=== PATIENT | female | born 1990 | race Caucasian/White ===

== ENCOUNTER 2018-08-14 17:20 | Emergency (ER) | payer BC, OTHER ==
[2018-08-14] MEDS ORDERED: NORG1TAB17 PO (17:39)
--- NOTE | 2018-08-14 17:46 | ER Report ---
History and Physical Time Seen By MD: 17:45 Hx. of Stated Complaint: ABD PAIN SINCE SATURDAY, THINKS HER GALLBLADDER IS INFECTED HPI/ROS CHIEF COMPLAINT: Abdominal pain HISTORY OF PRESENT ILLNESS: This is a 28-year-old female with extensive emergency department for abdominal pain. Patient states that January of last ye ar, she had some right upper abdominal pain, she was evaluated in [place] which is where she lives, noted to have gallbladder disease with stones, patient states that they sent her home was some pain medication and some stool softeners no follow-up with surgery. Patient has had a few small attacks since however this past Saturday she was eating at [employer] and almost immediately after eating she began to have right upper quadrant pain, the pain is continued since, increasing in intensity, she did drive down from [place] today as she does have family in [place], [facility] subsequently she was sent to the ER for evaluation. She is not febrile. She denies chills, no nausea or vomiting. She was constipated however that has since then resolved. No rashes. No dysuria. REVIEW OF SYSTEMS: Constitutional: No fever, no chills. Eyes: No discharge. ENT: No sore throat. Cardiovascular: No chest pain, no palpitations. Respiratory: No cough, no shortness of breath. Gastrointestinal: As above. Genitourinary: No hematuria. Musculoskeletal: No back pain. Skin: No rashes. Neurological: No headache. Allergies: Coded Allergies: No Known Drug Allergies (Unverified , 08/14/18) Home Meds Active Scripts Tramadol Hcl (ULTRAM) 50 Mg Tablet, 50-100 MG PO Q4-6H, #10 TAB 0 Refills Prov:BULL HARDING OPERATOR/ASSISTANT FOREMAN-BC 08/14/18 Amoxicillin/Pot Clav 875-125 Mg Tab (AUGMENTIN 875-125 TABLET) 1 Each Tablet, 1 TAB PO Q12H for 5 Days, #10 TAB 0 Refills Prov:BULL HARDING OPERATOR/ASSISTANT FOREMAN-BC 08/14/18 Reported Medications Norgestimate-Ethinyl Estradiol (TRI-LINYAH) 1 Each Tablet, 1 EACH PO DAILY 08/14/18 Past Medical/Surgical History Patient has a past medical and surgical history of GERD, gallbladder disease, ovarian cysts, . Reviewed Nurses Notes: Yes Hx Smoking: No Smoking Status: Never Smoker Exposure to Second Hand Smoke?: No Constitutional Vital Sign - Last 24 Hours 08/14/18 08/14/18 08/14/18 08/14/18 17:34 17:35 18:00 18:15 Temp 98.5 Pulse 77 70 78 Resp 14 B/P (MAP) 141/97 (112) 141/97 136/95 (109) Pulse Ox 97 96 97 O2 Delivery Room Air 08/14/18 08/14/18 08/14/18 08/14/18 18:30 18:35 18:50 19:00 Pulse 76 66 74 B/P (MAP) ???/??? (1665) Pulse Ox 97 98 94 08/14/18 08/14/18 08/14/18 08/14/18 19:05 19:20 19:30 19:35 Pulse 74 103 83 B/P (MAP) ???/??? (1665) Pulse Ox 95 82 96 08/14/18 08/14/18 08/14/18 08/14/18 19:50 20:05 20:08 20:20 Pulse 83 78 83 B/P (MAP) 129/87 (101) Pulse Ox 94 98 97 08/14/18 08/14/18 08/14/18 20:25 20:40 20:55 Pulse 83 78 73 Pulse Ox 97 97 81 Intake and Output 08/14/18 08/14/18 08/15/18 15:00 23:00 07:00 Intake Total 1000 ml Balance 1000 ml Physical Exam General Appearance: The patient is alert, has no immediate need for airway protection and no signs of toxicity. Eyes: Pupils equal and round no pallor or injection. ENT, Mouth: Mucous membranes are moist. Respiratory: There are no retractions, lungs are clear to auscultation. Cardiovascular: Regular rate and rhythm. No murmurs, clicks or rubs. Gastrointestinal: Abdomen is soft , positive Campbell sign, right upper quadrant pain with light palpation, mild right lower quadrant pain with palpation, there is a palpable nodule to the right upper costal margin. Unremarkable left abdome n. no masses, bowel sounds normal. Neurological: Alert and oriented 4. Moving all extremities. Following all commands. No focal neuro deficits. Skin: Warm and dry, no rashes. Musculoskeletal: Neck is supple non tender. Extremities are nontender, nonswollen and have full range of motion. DIFFERENTIAL DIAGNOSIS: After history and physical exam differential diagnosis was considered for abdominal pain in a female including but not limited to ovarian cyst, gallbladder disease, pelvic inflammatory disease, ovarian torsion, urinary tract infection, and appendicitis. Medical Decision Making Data Points Result Diagram: 08/14/18 1811 08/14/18 1811 Laboratory Hematology Test 08/14/18 17:32 08/14/18 18:11 Urine Color Yellow Urine Clarity Clear Urine pH 6.0 pH (4.8-9.5) Urine Specific Gilbert 1.020 Urine Protein Negative mg/dL (NEGATIVE) Urine Glucose (UA) Negative mg/dL (NEGATIVE) Urine Ketones Negative mg/dL (NEGATIVE) Urine Blood Moderate (NEGATIVE) Urine Nitrite Negative (NEGATIVE) Urine Bilirubin Negative (NEGATIVE) Urine Urobilinogen Negative mg/dL (0.2-1.9) Urine Leukocyte Esterase Negative (NEGATIVE) Urine RBC 2 /HPF (0-2/HPF) Urine WBC <1 /HPF (0-5/HPF) Urine Squamous Epithelial Cells None /LPF (</=FEW) Urine Bacteria Negative /HPF (NONE-FEW) Urine Mucus None /HPF (NONE-FEW) Red Blood Count 4.79 M/uL (4.17-5.56) Mean Corpuscular Volume 85.1 fL (80.0-96.0) Mean Corpuscular Hemoglobin 28.6 pg (26.0-33.0) Mean Corpuscular Hemoglobin Concent 33.6 g/dL (32.0-36.0) Red Cell Distribution Width 14.6 % (11.5-14.5) Mean Platelet Volume 7.3 fL (7.2-11.1) Neutrophils (%) (Auto) 42.8 % (39.4-72.5) Lymphocytes (%) (Auto) 41.1 % (17.6-49.6) Monocytes (%) (Auto) 5.3 % (4.1-12.4) Eosinophils (%) (Auto) 10.0 % (0.4-6.7) Basophils (%) (Auto) 0.8 % (0.3-1.4) Nucleated RBC Relative Count (auto) 0.0 /100WBC Neutrophils # (Auto) 3.0 K/uL (2.0-7.4) Lymphocytes # (Auto) 2.8 K/uL (1.3-3.6) Monocytes # (Auto) 0.4 K/uL (0.3-1.0) Eosinophils # (Auto) 0.7 K/uL (0.0-0.5) Basophils # (Auto) 0.1 K/uL (0.0-0.1) Nucleated RBC Absolute Count (auto) 0.00 K/uL Sodium Level 147 mmol/L (137-145) Potassium Level 4.4 mmol/L (3.5-5.0) Chloride Level 106 mmol/L (98-107) Carbon Dioxide Level 26 mmol/L (22-31) Blood Urea Nitrogen 13 mg/dl (7-18) Creatinine 0.70 mg/dl (0.52-1.04) Glomerular Filtration Rate Calc > 60.0 Random Glucose 95 mg/dl (75-110) Calcium Level 9.5 mg/dl (8.4-10.2) Total Bilirubin 0.1 mg/dl (0.2-1.3) Aspartate Amino Transf (AST/SGOT) 17 U/L (0-35) Alanine Aminotransferase (ALT/SGPT) 19 U/L (0-56) Alkaline Phosphatase 81 U/L (0-126) Total Protein 7.6 g/dl (6.3-8.2) Albumin 4.3 g/dl (3.5-5.0) Lipase 84 U/L (23-300) Chemistry Test 08/14/18 17:32 08/14/18 18:11 Urine Color Yellow Urine Clarity Clear Urine pH 6.0 pH (4.8-9.5) Urine Specific Gilbert 1.020 Urine Protein Negative mg/dL (NEGATIVE) Urine Glucose (UA) Negative mg/dL (NEGATIVE) Urine Ketones Negative mg/dL (NEGATIVE) Urine Blood Moderate (NEGATIVE) Urine Nitrite Negative (NEGATIVE) Urine Bilirubin Negative (NEGATIVE) Urine Urobilinogen Negative mg/dL (0.2-1.9) Urine Leukocyte Esterase Negative (NEGATIVE) Urine RBC 2 /HPF (0-2/HPF) Urine WBC <1 /HPF (0-5/HPF) Urine Squamous Epithelial Cells None /LPF (</=FEW) Urine Bacteria Negative /HPF (NONE-FEW) Urine Mucus None /HPF (NONE-FEW) White Blood Count 6.9 k/uL (4.5-11.0) Red Blood Count 4.79 M/uL (4.17-5.56) Hemoglobin 13.7 g/dL (12.0-16.0) Hematocrit 40.8 % (34.0-47.0) Mean Corpuscular Volume 85.1 fL (80.0-96.0) Mean Corpuscular Hemoglobin 28.6 pg (26.0-33.0) Mean Corpuscular Hemoglobin Concent 33.6 g/dL (32.0-36.0) Red Cell Distribution Width 14.6 % (11.5-14.5) Platelet Count 281 K/uL (150-450) Mean Platelet Volume 7.3 fL (7.2-11.1) Neutrophils (%) (Auto) 42.8 % (39.4-72.5) Lymphocytes (%) (Auto) 41.1 % (17.6-49.6) Monocytes (%) (Auto) 5.3 % (4.1-12.4) Eosinophils (%) (Auto) 10.0 % (0.4-6.7) Basophils (%) (Auto) 0.8 % (0.3-1.4) Nucleated RBC Relative Count (auto) 0.0 /100WBC Neutrophils # (Auto) 3.0 K/uL (2.0-7.4) Lymphocytes # (Auto) 2.8 K/uL (1.3-3.6) Monocytes # (Auto) 0.4 K/uL (0.3-1.0) Eosinophils # (Auto) 0.7 K/uL (0.0-0.5) Basophils # (Auto) 0.1 K/uL (0.0-0.1) Nucleated RBC Absolute Count (auto) 0.00 K/uL Glomerular Filtration Rate Calc > 60.0 Calcium Level 9.5 mg/dl (8.4-10.2) Total Bilirubin 0.1 mg/dl (0.2-1.3) Aspartate Amino Transf (AST/SGOT) 17 U/L (0-35) Alanine Aminotransferase (ALT/SGPT) 19 U/L (0-56) Alkaline Phosphatase 81 U/L (0-126) Total Protein 7.6 g/dl (6.3-8.2) Albumin 4.3 g/dl (3.5-5.0) Lipase 84 U/L (23-300) Urinalysis Test 08/14/18 17:32 Urine Color Yellow Urine Clarity Clear Urine pH 6.0 pH (4.8-9.5) Urine Specific Gilbert 1.020 Urine Protein Negative mg/dL (NEGATIVE) Urine Glucose (UA) Negative mg/dL (NEGATIVE) Urine Ketones Negative mg/dL (NEGATIVE) Urine Blood Moderate (NEGATIVE) Urine Nitrite Negative (NEGATIVE) Urine Bilirubin Negative (NEGATIVE) Urine Urobilinogen Negative mg/dL (0.2-1.9) Urine Leukocyte Esterase Negative (NEGATIVE) Urine RBC 2 /HPF (0-2/HPF) Urine WBC <1 /HPF (0-5/HPF) Urine Squamous Epithelial Cells None /LPF (</=FEW) Urine Bacteria Negative /HPF (NONE-FEW) Urine Mucus None /HPF (NONE-FEW) EKG/Imaging Imaging PATIENT NAME: Yolette Espinoza : 1990 MR: [id number] V: [id number] EXAM DATE: [id number] ORDERING PHYSICIAN: BULL HARDING TECHNOLOGIST: Location: [facility] Patient: Yolette Espinoza : 1990 Visit/Account:[id number] Date of Sevice: 08/14/2018 EXAMINATION: Focused right upper quadrant ultrasound COMPARISON: None HISTORY: Right upper quadrant pain. Findings: Standard right upper quadrant abdominal ultrasound is performed. Pancreas: Visualized portions of the pancreas are unremarkable. Liver and portal vein: Negative. Gallbladder and biliary system: Mildly distended gallbladder containing a few small echogenic and slightly shadowing mobile stones. No wall thickening or p ericholecystic fluid is identified but a sonographic Campbell sign is present. Visualized common bile duct is within normal limits. Visualized aorta and IVC: Negative. Kidneys: The right kidney measures 11.3 x 4.4 x 5.8 cm . No renal mass, stone, or hydronephrosis. Ascites: None. IMPRESSION: Mildly distended gallbladder containing small stones. Although there is no definite evidence of gallbladder wall inflammation, a sonographic Campbell sign is present and acute cholecystitis remains a possibility. Consider surgical consultation versus further characterization by HIDA as clinically indicated. Report Dictated By: Cristhian Roy MD at 08/14/2018 7:12 PM Report E-Signed By: Cristhian Roy MD at 08/14/2018 7:15 PM WSN:[email or web address] ED Course/Re-evaluation Clinical Indication for ER IV: Hydration, IV Access ED Course The patient was admitted to room. A history and physical were obtained. Differential diagnoses were considered. IV was started. Patient was given a 1 L normal saline bolus. She declined pain medications at this time. A CBC, CMP were obtained. Laboratory studies unremarkable. Negative UA. An ultrasound of the right upper quadrant showing a Mildly distended gallbladder containing small stones. Although there is no definite evidence of gallbladder wall inflammation, a sonographic Campbell sign is present and acute cholecystitis remains a possibility. I did review this with the patient, I also told him I spoke with Dr. Alvarez, the general surgeon on-call he will evaluate the patient. Dr. Alvarez did evaluate the patient, patient will be sent home on Augmentin and tramadol for pain. She'll contact his office tomorrow for a scheduled follow-up appointment next week likely for an outpatient surgical removal of the gallbladder. The patient had no other questions or concerns at this time, was ag reeable with this plan of care and discharged home. 08/14/2018 8:05:42 pm I did speak with Dr. Alvarez, the general surgeon on-call regarding the patient's case he will come down to evaluate the patient and formulate a plan at this time. 08/14/2018 9:12:[address] Alvarez was able to evaluate the patient, patient will contact Dr. Alvarez's office for outpatient cholecystectomy, likely next week. Decision to Disposition Date: August 14, 2018 Decision to Disposition Time: 21:12 Depart Departure Latest Vital Signs Vital Signs Date Time Temp Pulse Resp B/P (MAP) Pulse Ox O2 Delivery O2 Flow Rate FiO2 08/14/18 20:55 73 81 08/14/18 20:08 129/87 (101) 08/14/18 17:35 98.5 14 Room Air Impression: Primary Impression: Gallstones without obstruction of gallbladder Additional Impression: Right upper quadrant pain Condition: Improved Disposition: HOME OR SELF-CARE Referrals: ANIL ALVAREZ 5 Days New Scripts Tramadol Hcl (ULTRAM) 50 Mg Tablet 50-100 MG PO Q4-6H, #10 TAB 0 Refills Prov: BULL HARDING OPERATOR/ASSISTANT FOREMAN-BC 08/14/18 Amoxicillin/Pot Clav 875-125 Mg Tab (AUGMENTIN 875-125 TABLET) 1 Each Tablet 1 TAB PO Q12H for 5 Days, #10 TAB 0 Refills Prov: BULL HARDING OPERATOR/ASSISTANT FOREMAN-BC 08/14/18 Patient Instructions: Cholecystitis (ED) Additional Instructions: Please take the antibiotics as prescribed. Take Ibuprofen or Tylenol for pain. Take Tramadol for severe pain. Avoid fatty foods. Call Dr. Alvarez's office tomorrow to schedule the outpatient follow up appointment for next week. Return to the ED for any other concerns or worsening symptoms. Problem Qualifiers Primary Impression: Gallstones without obstruction of gallbladder Cholelithiasis location: gallbladder Cholecystitis presence: without cholecystitis Qualified Codes: K80.20 - Calculus of gallbladder without cholecystitis without obstruction BULL HARDING OPERATOR/ASSISTANT FOREMAN-BC August 14, 2018 17:46
[2018-08-14] MEDS ORDERED: NS(*) 0.9% 1000 ML BAG 1,000 ML IV ONE (17:55)
[2018-08-14 18:30] LABS: PLATELET COUNT, AUTOMATED 281 K/uL (150-450)
--- NOTE | 2018-08-14 19:19 | RADIOLOGY IMAGING REPORT ---
FACILITY: [facility] PATIENT NAME: Yolette Espinoza : 1990 MR: [id number] V: [id number] EXAM DATE: ORDERING PHYSICIAN: BULL HARDING TECHNOLOGIST: Location: [facility] Patient: Yolette Espinoza : 1990 Visit/Account:[id number] Date of Sevice: 08/14/2018 EXAMINATION: Focused right upper quadrant ultrasound COMPARISON: None HISTORY: Right upper quadrant pain. Findings: Standard right upper quadrant abdominal ultrasound is performed. Pancreas: Visualized portions of the pancreas are unremarkable. Liver and portal vein: Negative. Gallbladder and biliary system: Mildly distended gallbladder containing a few small echogenic and sli ghtly shadowing mobile stones. No wall thickening or pericholecystic fluid is identified but a sonog raphic Campbell sign is present. Visualized common bile duct is within normal limits. Visualized aorta and IVC: Negative. Kidneys: The right kidney measures 11.3 x 4.4 x 5.8 cm . No renal mass, stone, or hydronephrosis. Ascites: None. IMPRESSION: Mildly distended gallbladder containing small stones. Although there is no definite evidence of gall bladder wall inflammation, a sonographic Campbell sign is present and acute cholecystitis remains a pos sibility. Consider surgical consultation versus further characterization by MANJULA as clinically indic ated. Report Dictated By: Cristhian Roy MD at 08/14/2018 7:12 PM Report E-Signed By: Cristhian Roy MD at 08/14/2018 7:15 PM WSN:[email or web address]
[2018-08-14 20:08] VITALS: BP 129/87
[2018-08-14] MEDS ORDERED: TRAM-627 PO (21:15)
[2018-08-14] MEDS ORDERED: AMOX-559 PO (21:15)
[2018-08-14] MEDS ORDERED: traMADol 50 MG TAB TH 2 TAB/BOTTLE PO ONE (21:20)
[2018-08-14] MEDS ORDERED: AMOX/CLAV 875 MG TAB PO ONE (21:20)
== END 2018-08-14 21:38 | disposition home or self-care (01) ==
LOC: ER 17:32
DX: K80.20 Calculus of gallbladder without cholecystitis without obstruction (principal)
CPT/HCPCS: 36415; 76705; 81001; 83690; 85025; 96360; 96361; 99283; C9399; J7030; 82040; 82247; 82310; 82374; 82435; 82565; 82947; 84075; 84132; 84155; 84295; 84450; 84460; 84520

== ENCOUNTER 2018-08-19 01:27 | Day surgery (SDC) | payer BC ==
--- NOTE | 2018-08-16 20:01 | General Surgery Consultation ---
History of Present Illness Reason for Consult abd pain Chief Complaint abd pain History of Present Illness pt seen by me in er on 08/14/18 28 yo f with ruq pain. the pain started in jan 2018. pt was evaluated in [place], [place] she was found to have gallstones. she did not have surgery at that time. she has had ruq pain periodically. she ate a greasy meal last weekend and severe ruq pain. the pain is now resolving. no vomiting. no diarrhea. pmh/psh: gerd, ovarian cysts social hx: no cigs History Home Meds Active Scripts Tramadol Hcl (ULTRAM) 50 Mg Tablet, 50-100 MG PO Q4-6H, #10 TAB 0 Refills Prov:BULL HARDING [facility]-BC 08/14/18 Amoxicillin/Pot Clav 875-125 Mg Tab (AUGMENTIN 875-125 TABLET) 1 Each Tablet, 1 TAB PO Q12H for 5 Days, #10 TAB 0 Refills Prov:BULL HARDING [facility]-BC 08/14/18 Reported Medications Norgestimate-Ethinyl Estradiol (TRI-LINYAH) 1 Each Tablet, 1 EACH PO DAILY 08/14/18 Allergies: Coded Allergies: No Known Drug Allergies (Unverified , 08/14/18) Review of Systems Constitutional: Other (per hpi) Exam General Appearance: Alert, Awake, No Acute Distress Neuro: No Gross deficits Eyes: Other (per, eomi) Neck: No Masses Cardiovascular: Other (reg rate) Respiratory: No Respiratory Distress GI: Other (abd soft, some ruq ttp) Extremities: Other (no pitting edema) Integumentary: Skin Intact without Lesion / Mass Psych: Alert & Oriented X3, Appropriate Mood & Affect Assessment and Plan Problems: (1) Gallstones without obstruction of gallbladder Status: Acute Assessment & Plan: symptomatic pt stable, no inflammation around gb on US, wbc and tbili wnl plan: abx, lap jose next week Venous Thromboembolism Antithrombotics Is Pt On Any Antithrombotics?: No ANIL DOWELL Aug 16, 2018 20:01
[2018-08-19] VITALS (12 sets, daily range): BP systolic 122–140; BP diastolic 83–97
[~2018-08-19] VITALS: Ht 162.6 cm; Wt 84.8 kg
[~2018-08-19 01:27] MED LIST: AMOX-559 PO; NORG1TAB17 PO; TRAM-627 PO
[2018-08-19] MEDS ORDERED: ceFAZolin(*) 2GM/D5W 50ML 50 ML IVPB ONE (06:05)
[2018-08-19] MEDS: NORMOSOL R SOLN(*) 1000 ML BAG 1,000 ML IV PRN ×2 (09:03→14:30)
[2018-08-19] MEDS ORDERED: INDOCYANINE GREEN 25 MG VIAL IVP ONE (09:30)
[2018-08-19] MEDS ORDERED: BUPIVACAINE/EPI 0.5% 50ML VIAL INFIL ONE (10:34)
[2018-08-19] MEDS ORDERED: fentaNYL CITR 100 MCG/2 ML AMP ONE ×4 (10:47→14:04)
[2018-08-19] MEDS ORDERED: PROPOFOL EMUL(*) 10MG/ML 20 ML 20 ML ONE (11:21)
[2018-08-19] MEDS ORDERED: ROPIVACAINE 0.2% 20 ML VIAL ONE (11:21)
[2018-08-19] MEDS ORDERED: DEXAMETHASONE SOD PHOS 10MG/ML ONE (11:21)
[2018-08-19] MEDS ORDERED: ROCURONIUM BROM 10 MG/ML 10 ML ONE (11:21)
[2018-08-19] MEDS ORDERED: ONDANSETRON 4 MG/2 ML VIAL ONE ×2 (11:21→13:24)
[2018-08-19] MEDS ORDERED: FAMOTIDINE 20 MG TAB PO ONE (12:20)
[2018-08-19] MEDS ORDERED: MIDAZOLAM 2 MG/2 ML VIAL IVP PRN (12:20)
[2018-08-19] MEDS ORDERED: LIDOCAINE/SOD BICARB 8.4% SYR ID ONE (12:20)
[2018-08-19] MEDS ORDERED: SUGAMMADEX SOD 200 MG/2 ML SDV ONE (12:51)
[2018-08-19] MEDS ORDERED: TRAM-420 PO (13:33)
--- NOTE | 2018-08-19 13:36 | Short(Outpt) Discharge Summary ---
Discharge Summary Reason for Hosp/Final Diag: (1) Gallstones without obstruction of gallbladder Status: Acute Hospital Course & Plan: pt presented for cholecystectomy. she tolerated the procedure well. she will be discharged home when criteria met. Departure Discharge to: Home Discharge Instructions Home Meds Active Scripts Tramadol Hcl (TRAMADOL HCL) 50 Mg Tablet, 50 MG PO Q6H PRN for PAIN, #20 TAB Prov:ANIL ELLIOTT 08/19/18 Tramadol Hcl (ULTRAM) 50 Mg Tablet, 50-100 MG PO Q4-6H, #10 TAB 0 Refills Prov:BULL HARDING [facility]-BC 08/14/18 Amoxicillin/Pot Clav 875-125 Mg Tab (AUGMENTIN 875-125 TABLET) 1 Each Tablet, 1 TAB PO Q12H for 5 Days, #10 TAB 0 Refills Prov:BULL HARDING [facility]- 08/14/18 Reported Medications Norgestimate-Ethinyl Estradiol (TRI-LINYAH) 1 Each Tablet, 1 EACH PO DAILY 08/14/18 Diet: Regular Activity: No Heavy Lifting Special Instructions: no lifting more than 15 pounds for 3 wks. ok to shower tomorrow. f/u [facility] 2 wks ([phone]). take stool softener while taking pain meds. ANIL ELLIOTT Aug 19, 2018 13:36
--- NOTE | 2018-08-19 13:37 | Post Operative Progress Note ---
Post Operative Progress Note Date: Aug 19, 2018 Time: 13:36 Surgeon: dr. bailey elliott Sugar Trucker: none Anesthesia: gen, local dr. berry Pre-Op Diagnosis: symptomatic cholelithiasis Post-Op Diagnosis: same Procedure(s): robotic jose Specimen Removed:(May be N/A): gb Complications: none Estimated Blood Loss: minimal ANIL ELLIOTT Aug 19, 2018 13:37
[2018-08-19] MEDS ORDERED: HYDROmorphone HCL 2 MG/ML SDV ONE (13:40)
--- NOTE | 2018-08-19 16:20 | OPERATIVE REPORT 1 ---
EVENT DATE: August 19, 2018 SURGEON: Faheem Alvarez MD ANESTHESIOLOGIST: Sidney Hernandez MD ANESTHESIA: General and local. ARCHITECTURAL DRAFTING INSTRUCTOR: None. PREOPERATIVE DIAGNOSIS Symptomatic cholelithiasis. POSTOPERATIVE DIAGNOSIS Symptomatic cholelithiasis. PROCEDURE PERFORMED Robotic cholecystectomy. FLUIDS IV crystalloid. ESTIMATED BLOOD LOSS Minimal. SPECIMENS Gallbladder. COMPLICATIONS None. INDICATIONS This is a 28-year-old female with a history of several months of right upper quadrant pain. She had a recent attack after eating greasy food. On physical exam, the patient was stable. Her abdomen was soft. Imaging showed gallstones. Risks and benefits of the procedure were explained, and consent was signed. DESCRIPTION OF PROCEDURE Patient was taken to the operating room and placed in the supine position. General anesthesia was administered per the anesthesia team. Patient was prepped and draped in normal sterile fashion. Local analgesia was injected in the dermis above the umbilicus, and a small incision was made. The umbilical stump was grasped and elevated. I attempted to achieve a pneumoperitoneum through the Veress needle, but this was unsuccessful. Therefore, after injecting local analgesia, a small incision was made below the left costal margin. Optiview technique was used to enter the abdomen. Pneumoperitoneum was achieved. After injecting local analgesia under direct vision, three more 8 mm ports were placed across the mid abdomen for a total of four 8 mm ports. The robot was docked. I was unable to grab the fundus of the gallbladder due to hydrops. Therefore, a stitch was placed in the fundus, and this was used to retract the gallbladder. Cautery scissors were used to free the cystic duct and cystic artery of surrounding tissue. Both structures were seen going directly to the gallbladder. There was edema, consistent with acute inflammation. Three clips were placed on the cystic artery, and it was divided sharply between the distal two clips. Three clips were placed on the cystic duct, and it was divided sharply between the distal two clips. Gallbladder was taken off the liver bed with cautery scissors. It was removed with an Endo Catch bag. The right upper quadrant was irrigated and suctioned. Irrigant returned clear. Hemostasis was assured. Fascia closure device with an 0 Vicryl stitch was used to close the fascia of the port site that the gallbladder was removed from. All skin incisions were closed with 4-0 Monocryl subcuticular stitches. More local analgesia was injected. Appropriate dressings were applied. Patient tolerated the procedure well. There were no complications. ELZBIETA
--- NOTE | 2018-08-19 19:14 | NUR ---
1730 SBAR FROM Shayna WATTS RN. PT ON BED LUA 174 CHECKED ON PT, UNABLE TO USE BED LUA, REQUESTS BED SIDE COMMODE 174 PT PRODUCED LARGE AMOUNT OF MURKY, YELLOW, FOUL SMELLING URINE, FEELS MUCH BETTER, SOME DISCOMFORT RELIEVED BY VOIDING, SOME INCREASED BY STANDING AND PIVOTING 1750 PT TOLERATING SECOND SERVING OF JELLO 181 ORTHOSTATIC VITALS DONE, STABLE, BUT PT FEELS DIZZY AFTER STANDING FOR A FEW MOMENTS. BACK TO BED TO REST, BACK ON 1L NC TO ALLOW FOR REST. 183 PT RESTING COMFORTABLY, STATS STABLE, DOWN TO 0.5L NC 190 VSS, SATTING WELL, TOLERATING CHEESE AND CRACKERS, PAIN 2/10, DESCRIBED DISCOMFORT AND FULLNESS IN ABDOMEN. NOT READY TO TRY GETTING UP AGAIN YET.
--- NOTE | 2018-08-19 20:09 | NUR ---
1914 PT UP TO WALK LAPS AROUND JUAN OP AREA, STABLE ON FEET, DENIES DIZZINESS, PAIN 04/27 1924 IV OUT OF R HAND, PRESSURE DRESSING APPLIED 1929 PT ALLOWED TO DRESS, CALLED PT'S MOTHER, PT READY TO GO HOME SOON 1939 PT VOMITED 500ML OF RECENTLY CONSUMED FOOD/DRINK, NAUSEA CAME ON SUDDENLY, DENIES ANY NAUSEA SOON AFTER EMESIS, ASSISTED IN FINISHING DRESSING 1949 REASSESSED, VERY HYPOACTIVE BOWEL SOUNDS, EDUCATED ON STARTING WITH CLEAR LIQUIDS, ADVANCING TO SOFT FOODS TO ALLOW DIGESTIVE SYSTEM TO START BACK UP 1999 PT RESTING IN BED COMFORTABLY, PAIN 03/27
--- NOTE | 2018-08-19 20:31 | NUR ---
2014 MET PT'S FATHER IN [facility] DN WALKED UP TO SURGICAL DEPT, D/C INSTRUCTIONS COVERED 2020 ICE BAG REFILLED, PT INTO WHEEL CHAIR, OUT TO CAR ON ST SIDE WITH FATHER AND Koffi PINZON RN
== END 2018-08-19 15:00 | disposition home or self-care (01) ==
LOC: OR 01:27
PROVIDERS: ATTEND Surgery
DX: K80.20 Calculus of gallbladder without cholecystitis without obstruction (principal)
CPT/HCPCS: 47562; 81025; 88304; J1100; J1170; J2250; J2405; J2704; J2795; J3010; J0690